=== PATIENT | male | born 1940 | race Caucasian/White ===

== ENCOUNTER 2016-08-11 11:38 | Observation (INO) | payer MEDICARE, BC ==
[2016-08-10 14:55] LABS: ASPARTATE AMINO TRANSFERASE 19 U/L (15-37); BLOOD UREA NITROGEN 28 mg/dL (7-18)
[~2016-08-11] VITALS: Ht 177.8 cm; Wt 97.5 kg
[~2016-08-11 11:38] MED LIST: ALLO100T64 PO; ASCO10004 PO; ASPI-496 PO; CALC-112 PO; CHOL500015 PO; ESOM40CA PO; FINA5TAB4 PO; FURO-92 PO; GABA100C PO; GLIP5TAB10 PO; INSU100V8 SQ; LOSA25TA5 PO; METF500T4 PO; METO-93 PO; POTA10TA5 PO; SIMV40TA3 PO; TADA5TAB2 PO; TEMA30CA PO; VITA400C40 PO
[2016-08-11] MEDS ORDERED: LACTATED RINGERS 1,000 ML IV SCH (12:07)
[2016-08-11 12:34] VITALS: BP 130/80
[2016-08-11] MEDS ORDERED: FENTANYL PF 100 MCG/2ML ONE ×2 (13:40→15:56)
[2016-08-11] MEDS ORDERED: DEXAMETHASONE 4 MG/ML, 1ML ONE (14:58)
[2016-08-11] MEDS ORDERED: NEOSTIGMINE 1 MG/ML, 10ML ONE (14:58)
[2016-08-11] MEDS ORDERED: LABETALOL 5MG/ML, 20ML ONE (14:58)
[2016-08-11] MEDS ORDERED: GLYCOPYRROLATE 0.2MG/1ML ONE (14:58)
[2016-08-11] MEDS ORDERED: ROCURONIUM 10 MG/ML ONE (14:58)
[2016-08-11] MEDS ORDERED: PROPOFOL 10 MG/ML, 20ML ONE (14:58)
[2016-08-11] MEDS ORDERED: ONDANSETRON 2MG/ML, 2ML ONE (14:58)
[2016-08-11] MEDS ORDERED: ALBUTEROL/IPRATROPIUM 2.5MG/0.5MG, 3 ML NPPB PRN (15:30)
[2016-08-11] MEDS ORDERED: hydrALAzine 20 MG/ML, 1ML IV PRN (15:30)
[2016-08-11] MEDS ORDERED: LABETALOL 5MG/ML, 20ML IV PRN (15:30)
[2016-08-11] MEDS ORDERED: FENTANYL PF 100 MCG/2ML IV PRN (15:30)
[2016-08-11] MEDS ORDERED: ONDANSETRON 2MG/ML, 2ML IVPush PRN (15:30)
[2016-08-11] MEDS ORDERED: OXYcodone 5 MG/5 ML ORAL.SOL UDC PO PRN (15:30)
[2016-08-11] MEDS ORDERED: ACETAMINOPHEN 325 MG TABLET PO PRN (15:30)
[2016-08-11] MEDS ORDERED: morphine SULFATE 10 MG/ML, 1ML IV PRN (15:30)
[2016-08-11] MEDS ORDERED: PROMETHAZINE 25 MG/ML, 1ML IV PRN (15:30)
== END 2016-08-11 19:10 | disposition home or self-care (01) ==
LOC: OUT 11:38 → 4NOR 18:24 → OUT 18:25
PROVIDERS: ADMIT Internal Medicine; ATTEND Internal Medicine
DX: R91.8 Other nonspecific abnormal finding of lung field (principal); E11.9 Type 2 diabetes mellitus without complications; I48.91 Unspecified atrial fibrillation; R00.1 Bradycardia, unspecified; I25.10 Atherosclerotic heart disease of native coronary artery without angina pectoris; I44.1 Atrioventricular block, second degree; I10 Essential (primary) hypertension; R06.00 Dyspnea, unspecified; E78.5 Hyperlipidemia, unspecified; Z82.49 Family history of ischemic heart disease and other diseases of the circulatory system; Z95.0 Presence of cardiac pacemaker; Z87.891 Personal history of nicotine dependence; E78.00 Pure hypercholesterolemia, unspecified
CPT/HCPCS: 31625; 31627; 31629; 36415; 80053; 82962; 88172; 88173; 88177; 88305; 93005; G0378; J1100; J2405; J2704; J2710; J3010; J7120; J3490

== ENCOUNTER → 2016-08-24 | Outpatient (CLI) | payer MEDICARE, BC ==
[~2016-08-24] MED LIST changes: +OMNIPAQUE 350 MG/ML, 100ML BOTTLE ONE; -VITA400C40 PO; +VITA400C43 PO
== END | disposition home or self-care (01) ==
LOC: RAD 14:16
PROVIDERS: ATTEND Internal Medicine
DX: C34.90 Malignant neoplasm of unspecified part of unspecified bronchus or lung (principal); R91.8 Other nonspecific abnormal finding of lung field
CPT/HCPCS: 70460; Q9967

== ENCOUNTER → 2016-08-30 | Outpatient (CLI) | payer MEDICARE, BC ==
[~2016-08-30] MED LIST changes: -OMNIPAQUE 350 MG/ML, 100ML BOTTLE ONE; +VITA400C40 PO; -VITA400C43 PO
== END | disposition home or self-care (01) ==
LOC: PETCFH 12:41
PROVIDERS: ATTEND Internal Medicine Hematology & Oncology
DX: R91.8 Other nonspecific abnormal finding of lung field (principal); J84.9 Interstitial pulmonary disease, unspecified; K80.20 Calculus of gallbladder without cholecystitis without obstruction
CPT/HCPCS: 78815; A9552

== ENCOUNTER 2016-09-20 07:41 | Day surgery (SDC) | payer MEDICARE, BC ==
[~2016-09-20] VITALS: Ht 177.8 cm; Wt 95.0 kg
[~2016-09-20 07:41] MED LIST changes: -VITA400C40 PO; +VITA400C43 PO
[2016-09-20] MEDS ORDERED: PLEASE ENTER HEIGHT AND WEIGHT MC SCH (08:00)
[2016-09-20 08:18] VITALS: BP 107/71
[2016-09-20] MEDS ORDERED: SODIUM CHLORIDE 0.9% 1,000 ML IV SCH (08:30)
[2016-09-20] MEDS ORDERED: CEFAZOLIN PMX 1GM/50ML 50 ML IVPB ONE (09:00)
[2016-09-20] MEDS ORDERED: LIDOCAINE 1%, 20ML ONE (09:29)
[2016-09-20] MEDS ORDERED: FENTANYL PF 100 MCG/2ML ONE (09:48)
[2016-09-20] MEDS ORDERED: MIDAZOLAM 1 MG/ML, 5ML ONE (09:48)
== END 2016-09-20 11:35 ==
LOC: OUT 07:41
PROVIDERS: ATTEND Internal Medicine Hematology & Oncology
DX: Z45.2 Encounter for adjustment and management of vascular access device (principal); C34.11 Malignant neoplasm of upper lobe, right bronchus or lung; E11.9 Type 2 diabetes mellitus without complications; I48.91 Unspecified atrial fibrillation; I10 Essential (primary) hypertension; E78.5 Hyperlipidemia, unspecified; Z98.890 Other specified postprocedural states; Z95.0 Presence of cardiac pacemaker; Z87.891 Personal history of nicotine dependence
CPT/HCPCS: 36561; 76937; 77001; 99156; 99157; C1788; J0690; J1642; J2250; J3010; J3490; J7030

== ENCOUNTER → 2016-09-26 | Outpatient (CLI) | payer MEDICARE, BC | END | disposition home or self-care (01) | LOC: RAD 08:05 | DX: C34.11 Malignant neoplasm of upper lobe, right bronchus or lung (principal); R59.9 Enlarged lymph nodes, unspecified; R91.1 Solitary pulmonary nodule; M51.34 Other intervertebral disc degeneration, thoracic region; Z95.0 Presence of cardiac pacemaker | CPT/HCPCS: 71020 ==

== ENCOUNTER → 2016-09-26 | Outpatient (CLI) | payer MEDICARE, BC | LOC: RAD 08:01 | PROVIDERS: ATTEND Nurse Practitioner Family | DX: Z02.9 Encounter for administrative examinations, unspecified (principal) ==

== ENCOUNTER → 2016-11-15 | Outpatient (CLI) | payer MEDICARE, BC | END | disposition home or self-care (01) | LOC: EDSTATUS 11-11 14:30 → ROC 13:34 | PROVIDERS: ATTEND Radiology Radiation Oncology | DX: Z08 Encounter for follow-up examination after completed treatment for malignant neoplasm (principal); C34.90 Malignant neoplasm of unspecified part of unspecified bronchus or lung; Z92.3 Personal history of irradiation; Z95.0 Presence of cardiac pacemaker | CPT/HCPCS: G0463 ==

== ENCOUNTER 2016-11-27 14:22 | Inpatient (IN) | payer MEDICARE, BC ==
[~2016-11-27] VITALS: Ht 177.8 cm; Wt 85.5 kg
[2016-11-27 15:02] VITALS: BP 134/82
[2016-11-27] MEDS ORDERED: DOCUSATE 100 MG CAPSULE PO PRN (17:30)
[2016-11-27] MEDS ORDERED: ACETAMINOPHEN 325 MG TABLET PO PRN (17:30)
[2016-11-27] MEDS ORDERED: BISACODYL 10 MG SUPP PR PRN (17:30)
[2016-11-27] MEDS ORDERED: LABETALOL 5MG/ML, 20ML IVPush PRN (17:30)
[2016-11-27] MEDS ORDERED: POLYETHYLENE GLYCOL 17 GM PACKET PO PRN (17:30)
[2016-11-27] MEDS ORDERED: HYDROcodone/APAP 5/325 TABLET PO PRN (17:30)
[2016-11-27] MEDS ORDERED: GLUCAGON 1 MG IM PRN (18:00)
[2016-11-27] MEDS ORDERED: DEXTROSE 4 GM TAB.CHEW PO PRN (18:00)
[2016-11-27] MEDS ORDERED: DEXTROSE 50%, 50ML SYRINGE IVPush PRN (18:00)
[2016-11-27 18:20] LABS: HEMATOCRIT 34.6 % (39.2-51.8); HEMOGLOBIN 11.7 g/dL (13.7-18.0); WHITE BLOOD COUNT 6.9 x10^3/uL (3.4-10)
[2016-11-27 18:31] LABS: ASPARTATE AMINO TRANSFERASE 14 U/L (15-37); BLOOD UREA NITROGEN 14 mg/dL (7-18)
[2016-11-27] MEDS: SODIUM CHLORIDE 0.9% 1,000 ML IV SCH (18:36)
[2016-11-27 19:34] VITALS: BP 102/67
[2016-11-27] MEDS: ONDANSETRON 2MG/ML, 2ML IVPush PRN (20:07)
[2016-11-27] MEDS: NYSTATIN 500,000 UNITS/5 ML UDC PO SCH (20:08)
[2016-11-27] MEDS: INSULIN ASPART 100 UNITS/ML, PEN SQ-INSULIN SCH (20:14)
[2016-11-27] MEDS: SODIUM CHLORIDE FLUSH 10ML SYR IVF SCH (20:59)
[2016-11-27] MEDS: morphine SULFATE 10 MG/ML, 1ML IVPush PRN (20:59)
[2016-11-27 21:26] LABS: IS PT STATUS REG ER OR PRE ER? NO
[2016-11-28 02:16] VITALS: BP 126/80
[2016-11-28] MEDS: ONDANSETRON 2MG/ML, 2ML IVPush PRN ×3 (03:34→17:23)
[2016-11-28] MEDS: SODIUM CHLORIDE 0.9% 1,000 ML IV SCH ×3 (03:34→20:43)
[2016-11-28] MEDS: morphine SULFATE 10 MG/ML, 1ML IVPush PRN ×4 (03:39→21:40)
[2016-11-28 03:51] LABS: HEMOGLOBIN 11.1 g/dL (13.7-18.0); WHITE BLOOD COUNT 5.8 x10^3/uL (3.4-10)
[2016-11-28 04:02] LABS: BLOOD UREA NITROGEN 12 mg/dL (7-18)
[2016-11-28] MEDS: NYSTATIN 500,000 UNITS/5 ML UDC PO SCH ×4 (06:00→21:38)
[2016-11-28] MEDS: INSULIN ASPART 100 UNITS/ML, PEN SQ-INSULIN SCH ×4 (07:00→20:41)
[2016-11-28 08:10] VITALS: BP 119/74
[2016-11-28 08:56] LABS: IS PT STATUS REG ER OR PRE ER? NO
[2016-11-28] MEDS: SODIUM CHLORIDE FLUSH 10ML SYR IVF SCH ×2 (09:00→20:42)
[2016-11-28] MEDS ORDERED: FENTANYL PF 100 MCG/2ML ONE ×2 (10:47→11:24)
[2016-11-28] MEDS ORDERED: MIDAZOLAM 1 MG/ML, 5ML ONE (10:47)
[2016-11-28] MEDS ORDERED: CEFAZOLIN PMX 2GM/100ML 100 ML IVPB ONE (11:30)
[2016-11-28 13:40] VITALS: BP 113/75
[2016-11-28] MEDS: SUCRALFATE 1 GM/10 ML UDC PO SCH ×2 (16:00→20:43)
[2016-11-28 19:09] VITALS: BP 129/79
[2016-11-28] MEDS ORDERED: MORPHINE SULFATE 4 MG/ML, 1ML ONE (21:25)
[2016-11-29] MEDS ORDERED: MORPHINE SULFATE 4 MG/ML, 1ML ONE ×2 (01:07→03:51)
[2016-11-29] MEDS: morphine SULFATE 10 MG/ML, 1ML IVPush PRN ×3 (01:12→08:12)
[2016-11-29 01:17] VITALS: BP 117/69
[2016-11-29] MEDS: ONDANSETRON 2MG/ML, 2ML IVPush PRN (04:11)
[2016-11-29 04:38] LABS: HEMATOCRIT 30.4 % (39.2-51.8); HEMOGLOBIN 10.3 g/dL (13.7-18.0); WHITE BLOOD COUNT 4.8 x10^3/uL (3.4-10)
[2016-11-29 04:41] LABS: ASPARTATE AMINO TRANSFERASE 18 U/L (15-37); BLOOD UREA NITROGEN 10 mg/dL (7-18)
[2016-11-29] MEDS: SUCRALFATE 1 GM/10 ML UDC PO SCH ×4 (07:00→23:27)
[2016-11-29] MEDS: INSULIN ASPART 100 UNITS/ML, PEN SQ-INSULIN SCH ×4 (07:00→23:33)
[2016-11-29] MEDS ORDERED: OMEPRAZOLE/SOD. BICARB. PACKET PO SCH (07:30)
[2016-11-29] MEDS: OMEPRAZOLE 20 MG CAPSULE.DR PO SCH (07:30)
[2016-11-29] MEDS: SODIUM CHLORIDE FLUSH 10ML SYR IVF SCH ×2 (08:11→23:43)
[2016-11-29] MEDS: NYSTATIN 500,000 UNITS/5 ML UDC PO SCH ×4 (08:12→23:27)
[2016-11-29] MEDS: LIDOCAINE 2% VISCOUS, 100ML MM PRN ×3 (08:13→23:26)
[2016-11-29] MEDS: POTASSIUM CHLORIDE 20 MEQ PACKET PO SCH ×2 (08:32→17:00)
[2016-11-29 09:10] VITALS: BP 112/74
[2016-11-29 14:07] VITALS: BP 100/69
[2016-11-29] MEDS: SODIUM CHLORIDE 0.9% 1,000 ML IV SCH (14:16)
[2016-11-29] MEDS ORDERED: POTASSIUM CHLORIDE 20 MEQ PACKET PO SCH (17:00)
[2016-11-29] MEDS: METOPROLOL TARTRATE 25 MG TABLET PO SCH (17:03)
[2016-11-29 20:08] VITALS: BP 122/81
[2016-11-30 01:36] VITALS: BP 125/78
[2016-11-30] MEDS: SODIUM CHLORIDE 0.9% 1,000 ML IV SCH ×2 (02:00→12:07)
[2016-11-30] MEDS: METOPROLOL TARTRATE 25 MG TABLET PO SCH ×2 (05:03→17:30)
[2016-11-30] MEDS: NYSTATIN 500,000 UNITS/5 ML UDC PO SCH ×4 (05:03→20:58)
[2016-11-30 05:31] LABS: HEMATOCRIT 32.4 % (39.2-51.8); HEMOGLOBIN 11.1 g/dL (13.7-18.0); WHITE BLOOD COUNT 4.2 x10^3/uL (3.4-10)
[2016-11-30 05:40] LABS: BLOOD UREA NITROGEN 11 mg/dL (7-18)
[2016-11-30 05:43] LABS: ASPARTATE AMINO TRANSFERASE 28 U/L (15-37)
[2016-11-30] MEDS ORDERED: POTASSIUM CHLORIDE 40 MEQ in SODIUM CHLORIDE 0.9% 500 ML IV ONE (07:00)
[2016-11-30] MEDS ORDERED: POTASSIUM PHOSPHATE 22 MEQ in SODIUM CHLORIDE 0.9% 500 ML IV ONE (07:00)
[2016-11-30] MEDS: OMEPRAZOLE 20 MG CAPSULE.DR PO SCH (08:14)
[2016-11-30] MEDS: SUCRALFATE 1 GM/10 ML UDC PO SCH ×4 (08:14→20:58)
[2016-11-30] MEDS: POTASSIUM CHLORIDE 20 MEQ PACKET PO SCH (08:14)
[2016-11-30] MEDS: INSULIN ASPART 100 UNITS/ML, PEN SQ-INSULIN SCH ×4 (08:15→20:58)
[2016-11-30] MEDS: SODIUM CHLORIDE FLUSH 10ML SYR IVF SCH ×2 (08:18→20:58)
[2016-11-30 08:51] VITALS: BP 111/74
[2016-11-30] MEDS: LIDOCAINE 2% VISCOUS, 100ML MM PRN ×3 (11:58→20:59)
[2016-11-30 14:39] VITALS: BP 109/71
[2016-11-30 20:08] VITALS: BP 111/69
[2016-11-30] MEDS: TEMAZEPAM 30 MG CAPSULE PO PRN (22:02)
[2016-12-01] MEDS: SODIUM CHLORIDE 0.9% 1,000 ML IV SCH ×3 (02:25→23:59)
[2016-12-01 02:44] VITALS: BP 114/75
[2016-12-01] MEDS: METOPROLOL TARTRATE 25 MG TABLET PO SCH ×2 (05:10→17:36)
[2016-12-01] MEDS: NYSTATIN 500,000 UNITS/5 ML UDC PO SCH ×4 (05:10→20:49)
[2016-12-01] MEDS: LIDOCAINE 2% VISCOUS, 100ML MM PRN ×2 (05:10→20:49)
[2016-12-01 06:00] LABS: HEMATOCRIT 29.2 % (39.2-51.8); WHITE BLOOD COUNT 2.8 x10^3/uL (3.4-10)
[2016-12-01 06:15] LABS: ASPARTATE AMINO TRANSFERASE 21 U/L (15-37); BLOOD UREA NITROGEN 8 mg/dL (7-18)
[2016-12-01] MEDS: OMEPRAZOLE 20 MG CAPSULE.DR PO SCH (07:30)
[2016-12-01] MEDS ORDERED: MAGNESIUM SULFATE PMX 2GM/50ML 50 ML IV ONE (07:30)
[2016-12-01 07:45] VITALS: BP 119/74
[2016-12-01] MEDS ORDERED: POTASSIUM CHLORIDE 20 MEQ TAB.ER.PRT PO SCH (08:00)
[2016-12-01] MEDS: SUCRALFATE 1 GM/10 ML UDC PO SCH ×4 (08:02→20:49)
[2016-12-01] MEDS: INSULIN ASPART 100 UNITS/ML, PEN SQ-INSULIN SCH ×4 (08:10→20:49)
[2016-12-01] MEDS: SODIUM CHLORIDE FLUSH 10ML SYR IVF SCH ×2 (08:10→20:49)
[2016-12-01 13:08] VITALS: BP 116/75
[2016-12-01 20:03] VITALS: BP 119/71
[2016-12-01] MEDS: TEMAZEPAM 30 MG CAPSULE PO PRN (22:02)
[2016-12-02 00:12] VITALS: BP 131/77
[2016-12-02] MEDS: LIDOCAINE 2% VISCOUS, 100ML MM PRN (06:15)
[2016-12-02] MEDS: SUCRALFATE 1 GM/10 ML UDC PO SCH ×2 (06:15→11:33)
[2016-12-02] MEDS: METOPROLOL TARTRATE 25 MG TABLET PO SCH (06:15)
[2016-12-02] MEDS: NYSTATIN 500,000 UNITS/5 ML UDC PO SCH ×2 (06:15→11:33)
[2016-12-02 06:41] LABS: HEMATOCRIT 30.3 % (39.2-51.8); HEMOGLOBIN 10.4 g/dL (13.7-18.0)
[2016-12-02 06:53] LABS: ASPARTATE AMINO TRANSFERASE 17 U/L (15-37); BLOOD UREA NITROGEN 8 mg/dL (7-18)
[2016-12-02 07:19] VITALS: BP 126/76
[2016-12-02] MEDS: OMEPRAZOLE 20 MG CAPSULE.DR PO SCH (08:04)
[2016-12-02] MEDS: SODIUM CHLORIDE FLUSH 10ML SYR IVF SCH (08:05)
[2016-12-02] MEDS: INSULIN ASPART 100 UNITS/ML, PEN SQ-INSULIN SCH ×2 (08:05→11:40)
[2016-12-02] MEDS: SODIUM CHLORIDE 0.9% 1,000 ML IV SCH (11:32)
[2016-12-02] MEDS ORDERED: SUCR1ORA5 PEG (13:18)
[2016-12-02 13:33] VITALS: BP 119/76
== END 2016-12-02 15:30 | disposition home health service (06) | DRG 391 ==
LOC: 3NW 14:34
PROVIDERS: ADMIT Internal Medicine Gastroenterology; ATTEND Internal Medicine Gastroenterology
PROC: 0DB28ZX Excision of Middle Esophagus, Via Natural or Artificial Opening Endoscopic, Diagnostic (ICD-10-PCS; principal; 2016-11-28 11:00)
PROC: 0DH63UZ Insertion of Feeding Device into Stomach, Percutaneous Approach (ICD-10-PCS; 2016-11-28 11:00)
DX: K21.0 Gastro-esophageal reflux disease with esophagitis (principal); E43 Unspecified severe protein-calorie malnutrition; B37.0 Candidal stomatitis; E86.0 Dehydration; I11.9 Hypertensive heart disease without heart failure; C34.90 Malignant neoplasm of unspecified part of unspecified bronchus or lung; R17 Unspecified jaundice; E11.9 Type 2 diabetes mellitus without complications; R62.7 Adult failure to thrive; E78.5 Hyperlipidemia, unspecified; K57.90 Diverticulosis of intestine, part unspecified, without perforation or abscess without bleeding; R94.31 Abnormal electrocardiogram [ECG] [EKG]; K59.00 Constipation, unspecified; M10.9 Gout, unspecified; Z66 Do not resuscitate; Z79.84 Long term (current) use of oral hypoglycemic drugs; Z87.891 Personal history of nicotine dependence; Z86.010 Personal history of colon polyps; Z91.14 Patient's other noncompliance with medication regimen; Z92.21 Personal history of antineoplastic chemotherapy; Z92.3 Personal history of irradiation; Z95.0 Presence of cardiac pacemaker; Z98.42 Cataract extraction status, left eye; Z98.41 Cataract extraction status, right eye; Z90.89 Acquired absence of other organs; Z80.9 Family history of malignant neoplasm, unspecified; T50.8X5A Adverse effect of diagnostic agents, initial encounter; Y92.89 Other specified places as the place of occurrence of the external cause
CPT/HCPCS: 36415; 71010; 80048; 80053; 82962; 83735; 84100; 84134; 84443; 84484; 85025; 85610; 87324; 88305; 93005; 93306; 99152; 99153; B4087; J1815; J2250; J2405; J3010; J3480; J0690; J2270; J3475; J7030; J7040

== ENCOUNTER → 2017-02-21 | Outpatient (CLI) | payer MEDICARE, BC ==
[~2017-02-21] MED LIST changes: +SUCR1ORA5 PEG
== END | disposition home or self-care (01) ==
LOC: RAD 17:08
PROVIDERS: ATTEND Internal Medicine Hematology & Oncology
DX: C34.11 Malignant neoplasm of upper lobe, right bronchus or lung (principal); J84.9 Interstitial pulmonary disease, unspecified
CPT/HCPCS: 71275

== ENCOUNTER → 2017-04-27 | Outpatient (CLI) | payer MEDICARE, BC | END | disposition home or self-care (01) | LOC: ROC 13:13 | PROVIDERS: ATTEND Radiology Radiation Oncology | DX: Z08 Encounter for follow-up examination after completed treatment for malignant neoplasm (principal); C34.91 Malignant neoplasm of unspecified part of right bronchus or lung; J84.9 Interstitial pulmonary disease, unspecified; Z79.4 Long term (current) use of insulin; Z79.82 Long term (current) use of aspirin; Z95.0 Presence of cardiac pacemaker | CPT/HCPCS: G0463 ==

== ENCOUNTER → 2017-05-28 | Outpatient (CLI) | payer MEDICARE, BC | END | disposition home or self-care (01) | LOC: PETCFH 09:26 | PROVIDERS: ATTEND Internal Medicine Hematology & Oncology | DX: C79.72 Secondary malignant neoplasm of left adrenal gland (principal); C34.11 Malignant neoplasm of upper lobe, right bronchus or lung; J84.9 Interstitial pulmonary disease, unspecified; J70.0 Acute pulmonary manifestations due to radiation; Y84.2 Radiological procedure and radiotherapy as the cause of abnormal reaction of the patient, or of later complication, without mention of misadventure at the time of the procedure | CPT/HCPCS: 78815; A9552 ==

== ENCOUNTER → 2017-06-15 | Outpatient (CLI) | payer MEDICARE, BC | LOC: ROC 10:03 | PROVIDERS: ATTEND Radiology Radiation Oncology | DX: Z08 Encounter for follow-up examination after completed treatment for malignant neoplasm (principal); C79.72 Secondary malignant neoplasm of left adrenal gland; C34.11 Malignant neoplasm of upper lobe, right bronchus or lung; Z79.82 Long term (current) use of aspirin; Z79.4 Long term (current) use of insulin; Z95.0 Presence of cardiac pacemaker | CPT/HCPCS: G0463 ==

== ENCOUNTER → 2017-06-28 | Outpatient (CLI) | payer MEDICARE, BC ==
[2017-06-28 12:48] LABS: BASOPHILS # (AUTO) 0.03 x10^3/uL (0-0.1); BASOPHILS % (AUTO) 1 % (0-1); EOSINOPHILS # (AUTO) 0.14 x10^3/uL (0-0.4); EOSINOPHILS % (AUTO) 3 % (1-7); LYMPHOCYTES # (AUTO) 0.66 x10^3/uL (1-3.4); LYMPHOCYTES % (AUTO) 13 % (22-44); MD NO; MEAN CORPUSCULAR HEMOGLOBIN 32.7 pg (27.5-34.5); MEAN CORPUSCULAR HGB CONC 33.7 g/dL (33.2-36.2); MEAN CORPUSCULAR VOLUME 96.9 fL (81-97); MEAN PLATELET VOLUME 7.2 fL (7.4-10.4); MONOCYTES # (AUTO) 0.43 x10^3/uL (0.2-0.8); MONOCYTES % (AUTO) 8 % (2-9); NEUTROPHILS % (AUTO) 76 % (42-75); PLATELET COUNT 219 x10^3/uL (130-400); RED BLOOD COUNT 3.75 x10^6/uL (4.38-5.82); RED CELL DISTRIBUTION WIDTH 14.5 % (9.4-14.8)
[2017-06-28 12:58] LABS: CALCIUM 8.9 mg/dL (8.5-10.1); CHLORIDE 108 mmol/L (98-107)
[2017-06-28 13:03] LABS: ALANINE AMINOTRANSFERASE 86 U/L (12-78); ALBUMIN 3.5 g/dL (3.4-5.0); ALKALINE PHOSPHATASE 256 U/L (45-117); ANION GAP 8 mmol/L (5-15); BILIRUBIN, DIRECT 0.7 mg/dL (0.1-0.2); BILIRUBIN,TOTAL 1.2 mg/dL (0.2-1.0); CREATININE 1.06 mg/dL (0.7-1.3); TOTAL PROTEIN 7.6 g/dL (6.4-8.2)
== END ==
LOC: CFH 10:19
PROVIDERS: ATTEND Radiology Radiation Oncology
DX: B17.10 Acute hepatitis C without hepatic coma (principal); D61.818 Other pancytopenia; B19.10 Unspecified viral hepatitis B without hepatic coma
CPT/HCPCS: 36415; 80053; 82248; 85025; 86704; 86705; 86706; 86707; 86803; 87340; 87350

== ENCOUNTER → 2017-07-11 | Outpatient (CLI) | payer MEDICARE, BC ==
[2017-07-11 12:53] LABS: ALBUMIN 3.7 g/dL (3.4-5.0); ANION GAP 8 mmol/L (5-15); CHLORIDE 104 mmol/L (98-107)
[2017-07-11 12:58] LABS: ALANINE AMINOTRANSFERASE 25 U/L (12-78); ALKALINE PHOSPHATASE 122 U/L (45-117); BILIRUBIN,TOTAL 1.1 mg/dL (0.2-1.0); TOTAL PROTEIN 7.5 g/dL (6.4-8.2)
== END ==
LOC: CFH 11:42
PROVIDERS: ATTEND Radiology Radiation Oncology
DX: C79.72 Secondary malignant neoplasm of left adrenal gland (principal); C34.11 Malignant neoplasm of upper lobe, right bronchus or lung
CPT/HCPCS: 36415; 80053